=== PATIENT | female | born 1990 | race African-American/Black ===

== ENCOUNTER 2018-07-08 21:21 | Emergency (ER) | payer OTHER ==
[~2018-07-08] VITALS: Ht 157.5 cm; Wt 60.0 kg
[2018-07-08 22:05] VITALS: BP 148/89
== END 2018-07-09 02:30 | disposition left against medical advice (07) ==
LOC: ER 21:21
DX: F41.9 Anxiety disorder, unspecified (principal); Z53.21 Procedure and treatment not carried out due to patient leaving prior to being seen by health care provider

== ENCOUNTER 2018-08-25 13:07 | Emergency (ER) | payer OTHER | END 2018-08-25 13:58 | disposition left against medical advice (07) | LOC: ER 13:34 | DX: Z53.21 Procedure and treatment not carried out due to patient leaving prior to being seen by health care provider (principal) ==

== ENCOUNTER 2020-08-14 19:49 | Emergency (ER) | payer OTHER, MEDICAID ==
[~2020-08-14] VITALS: Ht 165.1 cm; Wt 59.0 kg
[2020-08-14] MEDS ORDERED: LORAZEPAM 2MG/ML CPJ IV STA (20:02)
[2020-08-14] MEDS ORDERED: SODIUM CHLORIDE 0.9% 1,000 ML IV ONE (20:15)
[2020-08-14 20:38] LABS: BASOPHILS % 0.8 % (0.0-2.0); EOSINOPHILS % 0.2 % (0.0-5.0); HEMATOCRIT. 38.2 % (36.0-48.0); HEMOGLOBIN. 12.6 g/dL (12.0-16.0); MEAN CORPUSCULAR HEMOGLOBIN 34.9 pg (28.0-32.0); MEAN PLATELET VOLUME 10.3 fl (7.4-10.4); MONOCYTES % 14.1 % (2.0-8.0); NEUTROPHILS % 33.9 % (40.0-76.0); PLATELET 64 x1000/uL (130-400); RED BLOOD CELL COUNT 3.61 mill/uL (4.2-5.4); RED CELL DISTRIBUTION WIDTH 21.2 % (11.6-14.6)
[2020-08-14 20:44] LABS: CHLORIDE 98 mEq/L (98-107)
[2020-08-14 20:48] LABS: ETHANOL BLOOD 159 mg/dL
[2020-08-14 22:30] VITALS: BP 113/86
[2020-08-15] MEDS ORDERED: POTASSIUM CHLORIDE 20MEQ TABLET SR PO ONE (01:15)
== END 2020-08-15 02:10 | disposition home or self-care (01) ==
LOC: ER 19:49
DX: F10.129 Alcohol abuse with intoxication, unspecified (principal); R45.1 Restlessness and agitation; Y90.6 Blood alcohol level of 120-199 mg/100 ml; Z78.1 Physical restraint status; E87.6 Hypokalemia; J45.909 Unspecified asthma, uncomplicated
CPT/HCPCS: 36415; 80053; 80307; 80320; 80329; 85025; 93005; 96361; 96374; 99284; J2060; J7030; Z7610; G0480

== ENCOUNTER 2020-09-06 12:40 | Emergency (ER) | payer OTHER ==
[~2020-09-06] VITALS: Ht 157.5 cm; Wt 60.0 kg
[2020-09-06 14:12] LABS: BASOPHILS % 0.7 % (0.0-2.0); EOSINOPHILS % 0.2 % (0.0-5.0); HEMATOCRIT. 28.6 % (36.0-48.0); HEMOGLOBIN. 9.8 g/dL (12.0-16.0); LYMPHOCYTES % 33.2 % (20.0-50.0); MEAN CORPUSCULAR HEMOGLOBIN 38.6 pg (28.0-32.0); MEAN CORPUSCULAR VOLUME 113.2 fL (81.0-99.0); MEAN PLATELET VOLUME 8.2 fl (7.4-10.4); MONOCYTES % 10.3 % (2.0-8.0); NEUTROPHILS % 55.6 % (40.0-76.0); PLATELET 175 x1000/uL (130-400); RED BLOOD CELL COUNT 2.53 mill/uL (4.2-5.4); RED CELL DISTRIBUTION WIDTH 17.2 % (11.6-14.6)
[2020-09-06 14:19] LABS: CHLORIDE 96 mEq/L (98-107)
[2020-09-06 14:29] LABS: PLATELET ESTIMATE NORMAL
[2020-09-06] MEDS ORDERED: ONDANSETRON HCL 4MG/2ML INJ IV STA (14:40)
[2020-09-06] MEDS ORDERED: SODIUM CHLORIDE 0.9% 1,000 ML IV ONE (14:45)
[2020-09-06 15:23] LABS: CLARITY URINE CLOUDY (CLEAR); COLOR URINE DARK YELLOW (YELLOW); KETONES URINE NEGATIVE (NEGATIVE); LEUKOCYTE ESTERASE URINE TRACE (NEGATIVE); NITRITE URINE NEGATIVE (NEGATIVE); OCCULT BLOOD URINE NEGATIVE (NEGATIVE); PH URINE 6.5 (4.5-8.0); PROTEIN URINE 1+ (NEGATIVE); SPECIFIC GRAVITY URINE 1.012 (1.005-1.030)
[2020-09-06 15:43] LABS: INR 1.2; PARTIAL THROMBOPLASTIN TIME 27.5 sec (23.4-31.0); PROTHROMBIN TIME 13.1 sec (9.6-11.0)
[2020-09-06] MEDS ORDERED: POTASSIUM CHLORIDE 20MEQ TABLET SR PO ONE (15:45)
[2020-09-06 16:03] LABS: HCG SCREEN NEGATIVE
[2020-09-06 16:30] LABS: HEPATITIS B SURFACE ANTIGEN NEGATIVE
[2020-09-06 16:59] LABS: HEPATITIS A AB IGM NEGATIVE (NEGATIVE)
[2020-09-06] MEDS ORDERED: IBUPROFEN 400MG TABLET PO ONE (19:00)
[2020-09-06 20:30] VITALS: BP 103/62
== END 2020-09-06 21:25 | disposition short-term general hospital (02) ==
LOC: ER 12:40 → CANBEDREQ 09-07 01:24
DX: K70.40 Alcoholic hepatic failure without coma (principal); F10.20 Alcohol dependence, uncomplicated; Y90.9 Presence of alcohol in blood, level not specified; E87.6 Hypokalemia; K82.8 Other specified diseases of gallbladder
CPT/HCPCS: 36415; 71045; 76700; 80053; 81003; 81025; 83690; 84703; 85025; 85610; 85730; 86705; 86709; 86803; 87340; 93005; 96361; 96374; 99285; J2405; J7030; Z7610

== ENCOUNTER 2021-03-13 22:31 | Emergency (ER) | payer MEDICAID, OTHER ==
[~2021-03-13] VITALS: Ht 162.6 cm; Wt 52.0 kg
[2021-03-14] MEDS ORDERED: PANTOPRAZOLE SODIUM 40 MG/VIAL IV STA (00:25)
[2021-03-14] MEDS ORDERED: ONDANSETRON HCL 4MG/2ML INJ IV STA (00:25)
[2021-03-14] MEDS ORDERED: SODIUM CHLORIDE 0.9% 1,000 ML IV ONE (00:30)
[2021-03-14 01:21] LABS: BASOPHILS % 0.6 % (0.0-2.0); HEMATOCRIT. 39.7 % (36.0-48.0); HEMOGLOBIN. 13.5 g/dL (12.0-16.0); LYMPHOCYTES % 20.8 % (20.0-50.0); MEAN CORPUSCULAR HEMOGLOBIN 34.3 pg (28.0-32.0); MEAN CORPUSCULAR VOLUME 100.6 fL (81.0-99.0); MONOCYTES % 6.9 % (2.0-8.0); NEUTROPHILS % 71.7 % (40.0-76.0); PLATELET 108 x1000/uL (130-400); RED BLOOD CELL COUNT 3.95 mill/uL (4.2-5.4); RED CELL DISTRIBUTION WIDTH 12.3 % (11.6-14.6)
[2021-03-14] MEDS ORDERED: HALOPERIDOL LACTATE 5MG/ML VIAL IM STA (01:32)
[2021-03-14] MEDS ORDERED: DIPHENHYDRAMINE 50MG/ML VIAL IM STA (01:32)
[2021-03-14] MEDS ORDERED: LORAZEPAM 2MG/ML CPJ IM STA (01:32)
[2021-03-14 01:33] LABS: CLARITY URINE CLEAR (CLEAR); COLOR URINE YELLOW (YELLOW); KETONES URINE 4+ (NEGATIVE); LEUKOCYTE ESTERASE URINE NEGATIVE (NEGATIVE); NITRITE URINE NEGATIVE (NEGATIVE); OCCULT BLOOD URINE NEGATIVE (NEGATIVE); PH URINE 5.5 (4.5-8.0); PROTEIN URINE 1+ (NEGATIVE); SPECIFIC GRAVITY URINE 1.021 (1.005-1.030); UROBILINOGEN URINE 0.2 E.U./dL (0.2-1.0)
[2021-03-14 01:33] LABS: CHLORIDE 99 mEq/L (98-107)
[2021-03-14 01:37] LABS: ETHANOL BLOOD 64 mg/dL; INR 1.1
[2021-03-14 01:38] LABS: HCG SCREEN NEGATIVE
[2021-03-14] MEDS ORDERED: POTASSIUM CHLORIDE INJ 40 MEQ in DEXT 5% WATER 250 ML IV SCH (04:00)
[2021-03-14 05:11] LABS: *BENZODIAZEPINES SCREEN URINE NEGATIVE (NEGATIVE); *COCAINE SCREEN URINE NEGATIVE (NEGATIVE)
[2021-03-14 05:12] LABS: *BARBITURATES SCREEN URINE NEGATIVE (NEGATIVE); CANNABINOID URINE SCREEN NEGATIVE (NEGATIVE); METHADONE URINE SCREEN NEGATIVE (NEGATIVE); OPIATES URINE SCREEN NEGATIVE (NEGATIVE); PHENCYCLIDINE URINE SCREEN NEGATIVE (NEGATIVE)
[2021-03-14 05:13] LABS: *AMPHETAMINES SCREEN URINE PRESUMTIVE POSITIVE (NEGATIVE)
[2021-03-14 10:06] VITALS: BP 129/80
== END 2021-03-14 10:39 | disposition home or self-care (01) ==
LOC: ER 22:31
DX: R10.9 Unspecified abdominal pain (principal); R45.1 Restlessness and agitation; F41.9 Anxiety disorder, unspecified; J45.909 Unspecified asthma, uncomplicated; F32.9 Major depressive disorder, single episode, unspecified
CPT/HCPCS: 36415; 76705; 80053; 80305; 80320; 81003; 82140; 83690; 84703; 85025; 85610; 96365; 96372; 96375; 99285; C9113; J1200; J1630; J2060; J2405; J3480; J7030; J7060; G0480

== ENCOUNTER 2021-08-21 11:02 | Emergency (ER) | payer OTHER ==
[~2021-08-21] VITALS: Ht 167.6 cm; Wt 53.0 kg
[~2021-08-21 11:02] MED LIST: ALBU90AE INH; DIVA500T51 PO; ESCI10TA PO; FAMO20TA8 PO; GABA-532 PO; MULT-1146 PO; ONDA4TAB5 MT; PANT40TA51 PO; PROT40 MT
[2021-08-21] MEDS ORDERED: ONDANSETRON HCL 4MG/2ML INJ IV STA (11:52)
[2021-08-21] MEDS ORDERED: [UNRECOGNIZED DRUG - REMARK] IV ONE ×4 (12:00)
[2021-08-21] MEDS ORDERED: SODIUM CHLORIDE 0.9% 1,000 ML IV ONE (12:00)
[2021-08-21 12:31] LABS: CLARITY URINE CLEAR (CLEAR); COLOR URINE DARK YELLOW (YELLOW); KETONES URINE 3+ (NEGATIVE); LEUKOCYTE ESTERASE URINE 1+ (NEGATIVE); NITRITE URINE NEGATIVE (NEGATIVE); OCCULT BLOOD URINE NEGATIVE (NEGATIVE); PH URINE >=9.0 (4.5-8.0); PROTEIN URINE 1+ (NEGATIVE)
[2021-08-21 13:00] LABS: *AMPHETAMINES SCREEN URINE NEGATIVE (NEGATIVE); *BARBITURATES SCREEN URINE NEGATIVE (NEGATIVE); *COCAINE SCREEN URINE NEGATIVE (NEGATIVE); METHADONE URINE SCREEN NEGATIVE (NEGATIVE)
[2021-08-21 13:01] LABS: CANNABINOID URINE SCREEN NEGATIVE (NEGATIVE); OPIATES URINE SCREEN NEGATIVE (NEGATIVE); PHENCYCLIDINE URINE SCREEN NEGATIVE (NEGATIVE)
[2021-08-21 13:12] LABS: *BENZODIAZEPINES SCREEN URINE PRESUMTIVE POSITIVE (NEGATIVE)
[2021-08-21 13:19] LABS: HEMATOCRIT. 43.2 % (36.0-48.0); HEMOGLOBIN. 15.1 g/dL (12.0-16.0); MEAN CORPUSCULAR HEMOGLOBIN 32.5 pg (28.0-32.0); MEAN CORPUSCULAR VOLUME 93.2 fL (81.0-99.0); MEAN PLATELET VOLUME 8.6 fl (7.4-10.4); PLATELET 338 x1000/uL (130-400); RED BLOOD CELL COUNT 4.64 mill/uL (4.2-5.4)
[2021-08-21 13:26] LABS: CHLORIDE 95 mEq/L (98-107)
[2021-08-21 13:27] LABS: HCG SCREEN NEGATIVE
[2021-08-21 13:30] LABS: ETHANOL BLOOD < 10 mg/dL
[2021-08-21 13:41] LABS: PLATELET ESTIMATE NORMAL
[2021-08-21] MEDS ORDERED: ONDA4TAB5 MT (14:42)
[2021-08-21] MEDS ORDERED: ONDANSETRON HCL 4MG/2ML INJ IV ONE (14:45)
[2021-08-21 16:12] VITALS: BP 115/71
== END 2021-08-21 16:34 | disposition home or self-care (01) ==
LOC: ER 11:02
DX: F10.239 Alcohol dependence with withdrawal, unspecified (principal); F10.229 Alcohol dependence with intoxication, unspecified; J45.909 Unspecified asthma, uncomplicated; Z79.899 Other long term (current) drug therapy; Y90.0 Blood alcohol level of less than 20 mg/100 ml
CPT/HCPCS: 36415; 80053; 80305; 80320; 81003; 84703; 85025; 96361; 96365; 96375; 96376; 99284; J2405; J3411; J3490; J7030; J7070; G0480

== ENCOUNTER 2021-08-25 13:03 | Emergency (ER) | payer OTHER ==
[~2021-08-25] VITALS: Ht 157.5 cm; Wt 52.0 kg
[2021-08-25 13:08] VITALS: BP 132/98
== END 2021-08-25 18:26 | disposition left against medical advice (07) ==
LOC: ER 13:19
DX: Z53.21 Procedure and treatment not carried out due to patient leaving prior to being seen by health care provider (principal)
CPT/HCPCS: 93005

== ENCOUNTER 2021-09-18 15:52 | Emergency (ER) | payer OTHER ==
[~2021-09-18] VITALS: Ht 170.2 cm; Wt 60.0 kg
[2021-09-18] MEDS ORDERED: FOLIC ACID 1 MG, THIAMINE HCL 100 MG, MVI, ADULT NO.1 10 ML in DEXTROSE 5% WATER 1,000 ML IV ONE ×4 (16:30)
[2021-09-18] MEDS ORDERED: LORAZEPAM 2MG/ML CPJ IV ONE (16:30)
[2021-09-18] MEDS ORDERED: ONDANSETRON HCL 4MG/2ML INJ IV ONE (16:30)
[2021-09-18 16:37] LABS: HEMATOCRIT. 44.7 % (36.0-48.0); HEMOGLOBIN. 15.7 g/dL (12.0-16.0); MEAN CORPUSCULAR HEMOGLOBIN 31.8 pg (28.0-32.0); MEAN CORPUSCULAR VOLUME 90.5 fL (81.0-99.0); MEAN PLATELET VOLUME 8.5 fl (7.4-10.4); PLATELET 233 x1000/uL (130-400); RED BLOOD CELL COUNT 4.94 mill/uL (4.2-5.4); RED CELL DISTRIBUTION WIDTH 14.6 % (11.6-14.6)
[2021-09-18 16:44] LABS: CHLORIDE 85 mEq/L (98-107)
[2021-09-18 16:46] LABS: HCG SCREEN NEGATIVE
[2021-09-18 16:47] LABS: ETHANOL BLOOD < 10 mg/dL
[2021-09-18 16:54] LABS: PLATELET ESTIMATE NORMAL
[2021-09-18] MEDS ORDERED: ONDA4TAB11 PO (19:31)
[2021-09-18] MEDS ORDERED: LORA-250 MT (19:31)
[2021-09-18] MEDS ORDERED: OMEP20CA14 MT (19:31)
[2021-09-18 20:05] VITALS: BP 118/90
== END 2021-09-18 20:03 | disposition home or self-care (01) ==
LOC: ER 15:52
DX: F10.229 Alcohol dependence with intoxication, unspecified (principal); R11.2 Nausea with vomiting, unspecified; Y90.0 Blood alcohol level of less than 20 mg/100 ml; R07.89 Other chest pain; E87.8 Other disorders of electrolyte and fluid balance, not elsewhere classified
CPT/HCPCS: 36415; 71045; 80048; 80307; 80320; 80329; 83690; 83735; 84484; 84703; 85025; 93005; 96365; 96375; 99285; J2060; J2405; J3411; J3490; J7070; G0480

== ENCOUNTER 2021-09-21 17:11 | Emergency (ER) | payer OTHER ==
[~2021-09-21] VITALS: Ht 157.5 cm; Wt 57.0 kg
[~2021-09-21 17:11] MED LIST changes: +LORA-250 MT; +OMEP20CA14 MT; +ONDA4TAB11 PO
[2021-09-21 17:14] VITALS: BP 121/77
[2021-09-21] MEDS ORDERED: SODIUM CHLORIDE 0.9% 1,000 ML IV ONE (19:00)
[2021-09-21] MEDS ORDERED: MAGNESIUM/ALUMINUM HYDROXIDE/SIMETHICONE 30ML UDC PO STA (19:00)
[2021-09-21] MEDS ORDERED: METOCLOPRAMIDE HCL 10MG/2ML VIAL IV STA (19:00)
== END 2021-09-21 22:04 | disposition left against medical advice (07) ==
LOC: ER 17:11
DX: R10.13 Epigastric pain (principal); R11.2 Nausea with vomiting, unspecified; R07.89 Other chest pain; R06.02 Shortness of breath
CPT/HCPCS: 93005; 99283; J7030

== ENCOUNTER 2022-05-22 15:29 | Emergency (ER) | payer OTHER ==
[~2022-05-22] VITALS: Ht 157.5 cm; Wt 54.0 kg
[2022-05-22 15:39] VITALS: BP 121/79
== END 2022-05-22 23:57 | disposition left against medical advice (07) ==
LOC: ER 15:29
DX: Z53.21 Procedure and treatment not carried out due to patient leaving prior to being seen by health care provider (principal)

== ENCOUNTER 2023-04-26 23:25 | Emergency (ER) | payer OTHER ==
[~2023-04-26] VITALS: Ht 160 cm; Wt 40.4 kg
[~2023-04-26 23:25] MED LIST changes: +ABIL5 PO; +CHLO25CA10 MT; +FOLI-43 PO; +HYDR-4001 MT; +LORA-249 MT; +MULT-230 MT; +PANT40TA51 MT; +THIA100T72 PO
[2023-04-26 23:31] VITALS: BP 135/92; PULSE 149; RESP 22; TEMP 98.5; O2SAT 98
[2023-04-27] MEDS ORDERED: SODIUM CHLORIDE 0.9% 1,000 ML IV ONE
[2023-04-27] MEDS ORDERED: LORAZEPAM 2MG/ML CPJ IV ONE (00:15)
[2023-04-27 00:22] LABS: EOSINOPHILS % 0.5 % (0.0-5.0); HEMATOCRIT. 45.5 % (36.0-48.0); HEMOGLOBIN. 15.3 g/dL (12.0-16.0); LYMPHOCYTES % 57.6 % (20.0-50.0); MEAN CORPUSCULAR HEMOGLOBIN 30.6 pg (28.0-32.0); MEAN CORPUSCULAR HGB CONC 33.5 g/dL (31.0-37.0); MEAN CORPUSCULAR VOLUME 91.3 fL (81.0-99.0); MEAN PLATELET VOLUME 8.4 fl (7.4-10.4); MONOCYTES % 13.6 % (2.0-8.0); NEUTROPHILS % 27.3 % (40.0-76.0); PLATELET 348 x1000/uL (130-400); RED BLOOD CELL COUNT 4.99 mill/uL (4.2-5.4); WHITE BLOOD COUNT 10.1 x1000/uL (4.5-11.0)
[2023-04-27 00:31] LABS: CHLORIDE 82 mEq/L (98-107); INDEX HEMOLYSI 1 (1-3); INDEX ICTERIC 1 (1-4); INDEX LIPEMIC 1 (1-3); SODIUM 131 mEq/L (136-145)
[2023-04-27 00:35] LABS: AMMONIA 20 uMol/L (<32)
[2023-04-27 00:40] LABS: ACETAMINOPHEN <2 ug/mL ug/mL (10-30); ALANINE AMINOTRANSFERASE 23 IU/L (13-61); ALBUMIN 4.6 g/dL (3.4-5.0); ASPARTATE AMINOTRANSFERASE 33 IU/L (15-37); BILIRUBIN TOTAL 0.3 mg/dL (0.1-1.0); CALCIUM 9.4 mg/dL (8.5-10.1); CARBON DIOXIDE 36 mEq/L (21-32); ETHANOL BLOOD 95 mg/dL (<10); GLUCOSE 97 mg/dL (70-105); PROTEIN TOTAL 10.6 g/dL (6.0-8.3); UREA NITROGEN BLOOD 16 mg/dL (7-21)
[2023-04-27 00:41] LABS: HCG SCREEN NEGATIVE
[2023-04-27 00:50] LABS: POTASSIUM 2.4 mEq/L (3.5-5.1)
[2023-04-27 04:58] LABS: TROPONIN I HIGH SENSITIVITY 10 ng/L (<54)
[2023-04-28] MEDS ORDERED: NITR-87 MT (08:00)
== END 2023-04-27 00:38 | disposition left against medical advice (07) ==
LOC: ER 23:25
DX: R44.0 Auditory hallucinations (principal); R00.0 Tachycardia, unspecified; E87.6 Hypokalemia; J45.909 Unspecified asthma, uncomplicated; Z79.899 Other long term (current) drug therapy; Z90.49 Acquired absence of other specified parts of digestive tract
CPT/HCPCS: 80053; 80307; 80329; 80320; 82140; 84703; 83690; 85025; 85379; 84484; 36415; 99284; 93005; J7030; G0480

== ENCOUNTER 2023-04-28 04:32 | Emergency (ER) | payer MEDICAID, OTHER ==
[~2023-04-28] VITALS: Ht 160 cm; Wt 39.7 kg
[2023-04-28 05:06] VITALS: BP 126/87; PULSE 125; RESP 18; TEMP 98.5; O2SAT 97
[2023-04-28] MEDS ORDERED: MAGNESIUM/ALUMINUM HYDROXIDE/SIMETHICONE 30ML UDC PO STA (05:28)
[2023-04-28] MEDS ORDERED: ONDANSETRON 4MG ODT PO STA (05:28)
[2023-04-28] MEDS ORDERED: SODIUM CHLORIDE 0.9% 1,000 ML IV ONE (05:30)
[2023-04-28 06:00] LABS: CLARITY URINE TURBID (CLEAR); COLOR URINE RED (YELLOW); GLUCOSE URINE NEGATIVE (NEGATIVE); KETONES URINE NEGATIVE (NEGATIVE); LEUKOCYTE ESTERASE URINE 2+ (NEGATIVE); NITRITE URINE POSITIVE (NEGATIVE); OCCULT BLOOD URINE 3+ (NEGATIVE); PROTEIN URINE 2+ (NEGATIVE); SPECIFIC GRAVITY URINE 1.026 (1.005-1.030); UROBILINOGEN URINE 0.2 E.U./dL (0.2-1.0)
[2023-04-28] MEDS ORDERED: CHLORDIAZEPOXIDE 25MG CAPSULE PO SCH (06:00)
[2023-04-28 06:05] LABS: EOSINOPHILS % 0.4 % (0.0-5.0); HEMATOCRIT. 40.6 % (36.0-48.0); HEMOGLOBIN. 13.8 g/dL (12.0-16.0); LYMPHOCYTES % 40.3 % (20.0-50.0); MEAN CORPUSCULAR HEMOGLOBIN 30.8 pg (28.0-32.0); MEAN CORPUSCULAR HGB CONC 34.1 g/dL (31.0-37.0); MEAN CORPUSCULAR VOLUME 90.5 fL (81.0-99.0); MEAN PLATELET VOLUME 8.4 fl (7.4-10.4); MONOCYTES % 14.1 % (2.0-8.0); NEUTROPHILS % 44.2 % (40.0-76.0); PLATELET 333 x1000/uL (130-400); RED BLOOD CELL COUNT 4.48 mill/uL (4.2-5.4); RED CELL DISTRIBUTION WIDTH 16.9 % (11.6-14.6); WHITE BLOOD COUNT 8.9 x1000/uL (4.5-11.0)
[2023-04-28] MEDS ORDERED: NITROFURANTOIN 100MG M/M CAPSULE PO ONE (06:15)
[2023-04-28 06:29] LABS: CHLORIDE 80 mEq/L (98-107); INDEX HEMOLYSI 1 (1-3); INDEX ICTERIC 1 (1-4); INDEX LIPEMIC 1 (1-3); SODIUM 130 mEq/L (136-145)
[2023-04-28 06:36] LABS: ALANINE AMINOTRANSFERASE 22 IU/L (13-61); ALBUMIN 4.6 g/dL (3.4-5.0); ASPARTATE AMINOTRANSFERASE 28 IU/L (15-37); BILIRUBIN TOTAL 0.3 mg/dL (0.1-1.0); CALCIUM 10.1 mg/dL (8.5-10.1); CARBON DIOXIDE 36 mEq/L (21-32); CREATININE 1.2 mg/dL (0.6-1.3); ETHANOL BLOOD 127 mg/dL (<10); GLUCOSE 119 mg/dL (70-105); PROTEIN TOTAL 10.2 g/dL (6.0-8.3); UREA NITROGEN BLOOD 20 mg/dL (7-21)
[2023-04-28 06:41] LABS: POTASSIUM 2.5 mEq/L (3.5-5.1)
[2023-04-28 07:00] LABS: HCG SCREEN NEGATIVE
[2023-04-28] MEDS ORDERED: POTASSIUM CHLORIDE 20MEQ TABLET SR PO ONE ×2 (07:00)
[2023-04-28] MEDS ORDERED: DIAZEPAM 5 MG/ML 2ML CPJ IM ONE (07:15)
[2023-04-28 07:52] LABS: WBC URINE 0-2 /hpf (0-2)
[2023-04-28 07:53] LABS: BACTERIA URINE NONE SEEN; RBC URINE TNTC /hpf (0-2); SQUAMOUS EPITHELIAL CELL URINE 1+ /lpf (RARE/1+)
[2023-04-28] MEDS ORDERED: NITR-87 MT (08:00)
== END 2023-04-28 07:15 | disposition left against medical advice (07) ==
LOC: ER 04:32
DX: F10.129 Alcohol abuse with intoxication, unspecified (principal); E87.8 Other disorders of electrolyte and fluid balance, not elsewhere classified; E87.6 Hypokalemia; Z79.899 Other long term (current) drug therapy; Y90.6 Blood alcohol level of 120-199 mg/100 ml
CPT/HCPCS: 80053; 81003; 81025; 80320; 84703; 83690; 85025; 36415; 71045; 93005; 96360; 99285; Q0162; J7030; Z7610 ×2; G0480

== ENCOUNTER 2023-05-01 07:59 | Emergency (ER) | payer OTHER ==
[~2023-05-01] VITALS: Ht 160 cm; Wt 54.4 kg
[~2023-05-01 07:59] MED LIST changes: +NITR-87 MT
[2023-05-01 08:05] VITALS: BP 135/83; PULSE 117; RESP 16; TEMP 98.5; O2SAT 98
== END 2023-05-01 09:01 | disposition left against medical advice (07) ==
LOC: ER 07:59
DX: R44.0 Auditory hallucinations (principal); Z79.899 Other long term (current) drug therapy
CPT/HCPCS: 99281

== ENCOUNTER 2023-05-24 05:27 | Emergency (ER) | payer OTHER ==
[~2023-05-24] VITALS: Ht 162.6 cm; Wt 60.0 kg
[2023-05-24 05:30] VITALS: O2SAT 98
[2023-05-24] MEDS ORDERED: OLANZAPINE 10 MG/VIAL IM STA (05:34)
[2023-05-24] MEDS ORDERED: LORAZEPAM 2MG/ML CPJ IM ONE (05:45)
[2023-05-24] MEDS ORDERED: TETANUS, DIPHTHERIA, PERTUSSIS VAC/PF 0.5ML (>10YR OLD) IM ONE (05:45)
[2023-05-24] MEDS ORDERED: BACITRACIN ZINC OINT UDPKT TOP ONE (05:45)
[2023-05-24] MEDS ORDERED: HALOPERIDOL LACTATE 5MG/ML VIAL IM ONE (05:45)
[2023-05-24] MEDS ORDERED: LORAZEPAM 4MG/ML VIAL IM NR (06:00)
[2023-05-24 06:25] LABS: BASOPHILS % 0.8 % (0.0-2.0); EOSINOPHILS % 0.3 % (0.0-5.0); HEMATOCRIT. 35.1 % (36.0-48.0); HEMOGLOBIN. 11.5 g/dL (12.0-16.0); MEAN CORPUSCULAR HEMOGLOBIN 30.9 pg (28.0-32.0); MEAN CORPUSCULAR HGB CONC 32.9 g/dL (31.0-37.0); MEAN CORPUSCULAR VOLUME 93.9 fL (81.0-99.0); MEAN PLATELET VOLUME 7.4 fl (7.4-10.4); MONOCYTES % 7.2 % (2.0-8.0); NEUTROPHILS % 26.7 % (40.0-76.0); PLATELET 228 x1000/uL (130-400); RED BLOOD CELL COUNT 3.74 mill/uL (4.2-5.4); RED CELL DISTRIBUTION WIDTH 15.9 % (11.6-14.6); WHITE BLOOD COUNT 8.9 x1000/uL (4.5-11.0)
[2023-05-24 06:36] LABS: HCG SCREEN NEGATIVE
[2023-05-24 06:55] LABS: ACETAMINOPHEN < 2 ug/mL (10-30); ALANINE AMINOTRANSFERASE 41 IU/L (10-49); ALBUMIN 3.9 g/dL (3.2-4.8); ASPARTATE AMINOTRANSFERASE 94 IU/L (<34); BILIRUBIN TOTAL 0.9 mg/dL (0.1-1.0); CALCIUM 8.7 mg/dL (8.7-10.4); CARBON DIOXIDE 25 mEq/L (21-32); CHLORIDE 108 mEq/L (98-107); CREATININE 0.7 mg/dL (0.6-1.0); ETHANOL BLOOD 327 mg/dL (<10); GLUCOSE 58 mg/dL (70-105); PROTEIN TOTAL 7.8 g/dL (6.0-8.3); SODIUM 148 mEq/L (136-145); UREA NITROGEN BLOOD 8 mg/dL (9-23)
[2023-05-24 07:07] LABS: POTASSIUM 2.8 mEq/L (3.5-5.1)
[2023-05-24] MEDS ORDERED: POTASSIUM CHLORIDE 20MEQ/PACKET PO ONE (07:15)
[2023-05-24 14:58] LABS: CALCIUM 8.1 mg/dL (8.7-10.4); CARBON DIOXIDE 22 mEq/L (21-32); CHLORIDE 110 mEq/L (98-107); CREATININE 0.6 mg/dL (0.6-1.0); GLUCOSE 53 mg/dL (70-105); POTASSIUM 2.9 mEq/L (3.5-5.1); SODIUM 147 mEq/L (136-145); UREA NITROGEN BLOOD 9 mg/dL (9-23)
[2023-05-24 17:21] VITALS: BP 130/76; PULSE 80; RESP 16; TEMP 98.2
== END 2023-05-24 19:39 | disposition home or self-care (01) ==
LOC: ER 05:37
DX: S51.812A Laceration without foreign body of left forearm, initial encounter (principal); J45.909 Unspecified asthma, uncomplicated; F32.9 Major depressive disorder, single episode, unspecified; F12.10 Cannabis abuse, uncomplicated; E87.6 Hypokalemia; F10.129 Alcohol abuse with intoxication, unspecified; F15.10 Other stimulant abuse, uncomplicated; Z79.899 Other long term (current) drug therapy; Z20.822 Contact with and (suspected) exposure to COVID-19; Y08.89XA Assault by other specified means, initial encounter; Y93.89 Activity, other specified; Y92.89 Other specified places as the place of occurrence of the external cause; Y99.8 Other external cause status; Y90.8 Blood alcohol level of 240 mg/100 ml or more
CPT/HCPCS: 80053; 80048; 80307; 80329; 80320; 84703; 83735; 84443; 85025; 36415; 73120; 90715; 93005; 90471; 96372; 99291; 87426; J1630; C9803; Z7610; G0480

== ENCOUNTER 2023-07-13 08:07 | Emergency (ER) | payer MEDICAID, OTHER ==
[~2023-07-13] VITALS: Ht 162.6 cm; Wt 46.0 kg
[2023-07-13] MEDS ORDERED: LORAZEPAM 2MG/ML INJ IM ONE (08:15)
[2023-07-13] MEDS ORDERED: OLANZAPINE 10 MG/VIAL IM ONE (08:15)
[2023-07-13 09:49] LABS: BASOPHILS % 0.2 % (0.0-2.0); HEMATOCRIT. 34.2 % (36.0-48.0); LYMPHOCYTES % 13.2 % (20.0-50.0); MEAN CORPUSCULAR HEMOGLOBIN 30.1 pg (28.0-32.0); MEAN CORPUSCULAR HGB CONC 32.2 g/dL (31.0-37.0); MEAN CORPUSCULAR VOLUME 93.5 fL (81.0-99.0); MEAN PLATELET VOLUME 7.6 fl (7.4-10.4); MONOCYTES % 8.8 % (2.0-8.0); NEUTROPHILS % 77.8 % (40.0-76.0); PLATELET 192 x1000/uL (130-400); RED BLOOD CELL COUNT 3.66 mill/uL (4.2-5.4); RED CELL DISTRIBUTION WIDTH 13.6 % (11.6-14.6); WHITE BLOOD COUNT 11.3 x1000/uL (4.5-11.0)
[2023-07-13 10:10] LABS: ALANINE AMINOTRANSFERASE 29 IU/L (10-49); ALBUMIN 3.9 g/dL (3.2-4.8); ASPARTATE AMINOTRANSFERASE 65 IU/L (<34); BILIRUBIN TOTAL 0.6 mg/dL (0.1-1.0); CALCIUM 8.8 mg/dL (8.7-10.4); CARBON DIOXIDE 26 mEq/L (21-32); CHLORIDE 86 mEq/L (98-107); CREATININE 0.9 mg/dL (0.6-1.0); ETHANOL BLOOD 95 mg/dL (<10); GLUCOSE 82 mg/dL (70-105); HCG SCREEN NEGATIVE; PROTEIN TOTAL 8.4 g/dL (6.0-8.3); SODIUM 133 mEq/L (136-145); UREA NITROGEN BLOOD 11 mg/dL (9-23)
[2023-07-13 10:27] LABS: POTASSIUM 2.1 mEq/L (3.5-5.1)
[2023-07-13 11:00] VITALS: O2SAT 99
[2023-07-13 12:02] LABS: CLARITY URINE CLOUDY (CLEAR); COLOR URINE DARK YELLOW (YELLOW); GLUCOSE URINE NEGATIVE (NEGATIVE); KETONES URINE TRACE (NEGATIVE); LEUKOCYTE ESTERASE URINE TRACE (NEGATIVE); NITRITE URINE NEGATIVE (NEGATIVE); OCCULT BLOOD URINE NEGATIVE (NEGATIVE); PH URINE 6.5 (4.5-8.0); PROTEIN URINE 2+ (NEGATIVE); SPECIFIC GRAVITY URINE 1.025 (1.005-1.030)
[2023-07-13 12:40] LABS: RBC URINE 0-2 /hpf (0-2); WBC URINE 0-2 /hpf (0-2)
[2023-07-13 12:41] LABS: BACTERIA URINE TRACE; SQUAMOUS EPITHELIAL CELL URINE 2+ /lpf (RARE/1+); YEAST URINE NONE SEEN
[2023-07-13 12:47] LABS: *AMPHETAMINES SCREEN URINE NEGATIVE (NEGATIVE); *BARBITURATES SCREEN URINE NEGATIVE (NEGATIVE); *BENZODIAZEPINES SCREEN URINE NEGATIVE (NEGATIVE); *COCAINE SCREEN URINE NEGATIVE (NEGATIVE); CANNABINOID URINE SCREEN NEGATIVE (NEGATIVE); ECSTASY MDMA SCREEN URINE NEGATIVE (NEGATIVE); METHADONE URINE SCREEN Neg (NEGATIVE); OPIATES URINE SCREEN NEGATIVE (NEGATIVE); PHENCYCLIDINE URINE SCREEN NEGATIVE (NEGATIVE)
[2023-07-13] MEDS ORDERED: POTASSIUM CHLORIDE 20MEQ/PACKET PO ONE (13:45)
[2023-07-14] MEDS ORDERED: ARIPIPRAZOLE 5MG TABLET PO SCH (12:00)
[2023-07-14] MEDS ORDERED: POTASSIUM CHLORIDE 20MEQ TABLET SR PO ONE (14:00)
[2023-07-14 19:15] VITALS: BP 104/72; PULSE 102; RESP 18; TEMP 98.2
== END 2023-07-14 19:17 ==
LOC: ER 08:07
DX: R45.851 Suicidal ideations (principal); Z20.822 Contact with and (suspected) exposure to COVID-19
CPT/HCPCS: 80053; 80305; 81003; 80320; 84703; 85025; 36415; 96372; 99285; 87426; J3490; J2060; Z7610 ×2; G0480

== ENCOUNTER 2023-10-09 00:27 | Emergency (ER) | payer SELFPAY ==
[~2023-10-09] VITALS: Ht 170.2 cm; Wt 55.0 kg
[2023-10-09 00:30] VITALS: BP 124/74; PULSE 100; RESP 18; TEMP 98.4; O2SAT 98
== END 2023-10-09 02:03 | disposition left against medical advice (07) ==
LOC: ER 00:27
DX: R51.9 Headache, unspecified (principal); Z53.21 Procedure and treatment not carried out due to patient leaving prior to being seen by health care provider
CPT/HCPCS: 99281

== ENCOUNTER 2024-01-02 01:53 | Emergency (ER) | payer MEDICAID ==
[~2024-01-02] VITALS: Ht 167.6 cm; Wt 50.0 kg
[~2024-01-02 01:53] MED LIST changes: +ONDA-239 PO; -ONDA4TAB11 PO
[2024-01-02] MEDS: LORAZEPAM 2MG/ML INJ IM ONE (02:51)
[2024-01-02] MEDS: DIPHENHYDRAMINE 50MG/ML VIAL IM ONE (02:52)
[2024-01-02] MEDS: HALOPERIDOL LACTATE 5MG/ML VIAL IM ONE (02:52)
[2024-01-02 03:35] VITALS: O2SAT 99
[2024-01-02 04:34] LABS: BASOPHILS % 0.4 % (0.0-2.0); HEMATOCRIT. 33.3 % (36.0-48.0); LYMPHOCYTES % 24.5 % (20.0-50.0); MEAN CORPUSCULAR HEMOGLOBIN 31.1 pg (28.0-32.0); MEAN CORPUSCULAR VOLUME 94.1 fL (81.0-99.0); MEAN PLATELET VOLUME 8.9 fl (7.4-10.4); MONOCYTES % 5.3 % (2.0-8.0); NEUTROPHILS % 69.8 % (40.0-76.0); PLATELET 73 x1000/uL (130-400); RED BLOOD CELL COUNT 3.54 mill/uL (4.2-5.4); RED CELL DISTRIBUTION WIDTH 16.8 % (11.6-14.6); WHITE BLOOD COUNT 8.6 x1000/uL (4.5-11.0)
[2024-01-02 04:45] LABS: CHLORIDE 106 mEq/L (98-107); SODIUM 138 mEq/L (136-145)
[2024-01-02 04:46] LABS: CARBON DIOXIDE 20 mEq/L (21-32)
[2024-01-02 04:47] LABS: CALCIUM 7.9 mg/dL (8.7-10.4)
[2024-01-02 04:51] LABS: CREATININE 0.7 mg/dL (0.6-1.0)
[2024-01-02 04:52] LABS: ETHANOL BLOOD 289 mg/dL (<10); GLUCOSE 83 mg/dL (70-105); UREA NITROGEN BLOOD 11 mg/dL (9-23)
[2024-01-02 04:53] LABS: ACETAMINOPHEN < 2 ug/mL (10-30); HCG SCREEN NEGATIVE
[2024-01-02 04:56] LABS: POTASSIUM 2.5 mEq/L (3.5-5.1)
[2024-01-02] MEDS ORDERED: POTASSIUM CHLORIDE 20MEQ/PACKET PO ONE (05:30)
[2024-01-02] MEDS: POTASSIUM CHLORIDE 20MEQ/PACKET PO NR (08:00)
[2024-01-02 13:10] LABS: CLARITY URINE CLOUDY (CLEAR); COLOR URINE ORANGE (YELLOW); GLUCOSE URINE NEGATIVE (NEGATIVE); KETONES URINE NEGATIVE (NEGATIVE); LEUKOCYTE ESTERASE URINE 1+ (NEGATIVE); NITRITE URINE NEGATIVE (NEGATIVE); OCCULT BLOOD URINE 3+ (NEGATIVE); PROTEIN URINE 1+ (NEGATIVE); SPECIFIC GRAVITY URINE 1.019 (1.005-1.030)
[2024-01-02 13:23] LABS: BACTERIA URINE 1+; RBC URINE TNTC /hpf (0-2); SQUAMOUS EPITHELIAL CELL URINE 1+ /lpf (RARE/1+); WBC URINE 0-2 /hpf (0-2); YEAST URINE NONE SEEN
[2024-01-02 13:25] LABS: *AMPHETAMINES SCREEN URINE NEGATIVE (NEGATIVE); *BARBITURATES SCREEN URINE NEGATIVE (NEGATIVE); *BENZODIAZEPINES SCREEN URINE NEGATIVE (NEGATIVE); *COCAINE SCREEN URINE NEGATIVE (NEGATIVE); CANNABINOID URINE SCREEN NEGATIVE (NEGATIVE); ECSTASY MDMA SCREEN URINE CONF.TEST INDICATED (NEGATIVE); METHADONE URINE SCREEN NEGATIVE (NEGATIVE); OPIATES URINE SCREEN NEGATIVE (NEGATIVE); PHENCYCLIDINE URINE SCREEN NEGATIVE (NEGATIVE)
[2024-01-02] MEDS: LORAZEPAM 0.5MG TABLET PO ONE (14:15)
[2024-01-02 16:32] LABS: ALANINE AMINOTRANSFERASE 96 IU/L (10-49); ALBUMIN 3.3 g/dL (3.2-4.8); ASPARTATE AMINOTRANSFERASE 157 IU/L (<34); BILIRUBIN TOTAL 4.3 mg/dL (0.1-1.0); CALCIUM 8.2 mg/dL (8.7-10.4); CARBON DIOXIDE 22 mEq/L (21-32); CHLORIDE 107 mEq/L (98-107); CREATININE 0.6 mg/dL (0.6-1.0); GLUCOSE 69 mg/dL (70-105); PROTEIN TOTAL 7.5 g/dL (6.0-8.3); SODIUM 141 mEq/L (136-145); UREA NITROGEN BLOOD 9 mg/dL (9-23)
[2024-01-02 16:56] LABS: POTASSIUM 2.8 mEq/L (3.5-5.1)
[2024-01-02] MEDS: ARIPIPRAZOLE 5MG TABLET PO SCH (18:30)
[2024-01-02] MEDS: LORAZEPAM 1MG TABLET PO ONE ×2 (18:45→23:20)
[2024-01-02] MEDS: DIPHENHYDRAMINE 25MG CAPSULE PO ONE (18:45)
[2024-01-02] MEDS: ONDANSETRON HCL 4MG TABLET PO ONE (19:00)
[2024-01-03 13:41] LABS: CHLORIDE 104 mEq/L (98-107); POTASSIUM 2.9 mEq/L (3.5-5.1); SODIUM 138 mEq/L (136-145)
[2024-01-03 13:42] LABS: CALCIUM 8.2 mg/dL (8.7-10.4); CARBON DIOXIDE 23 mEq/L (21-32)
[2024-01-03 13:47] LABS: CREATININE 0.6 mg/dL (0.6-1.0); GLUCOSE 73 mg/dL (70-105)
[2024-01-03 13:48] LABS: UREA NITROGEN BLOOD 8 mg/dL (9-23)
[2024-01-03] MEDS: HALOPERIDOL LACTATE 5MG/ML VIAL IM ONE (19:59)
[2024-01-04] MEDS: LORAZEPAM 1MG TABLET PO ONE (14:33)
[2024-01-05] MEDS: OXYMETAZOLINE HCL NASAL SPRAY 15ML BOTHNSTRLS SCH (04:48)
[2024-01-05 10:29] VITALS: BP 116/81; PULSE 70; RESP 18; TEMP 36.78072; O2SAT 99
== END 2024-01-05 11:12 | disposition home or self-care (01) ==
LOC: ER 01:53
DX: R45.851 Suicidal ideations (principal); F41.9 Anxiety disorder, unspecified; J45.909 Unspecified asthma, uncomplicated; F12.90 Cannabis use, unspecified, uncomplicated; F15.90 Other stimulant use, unspecified, uncomplicated; Z20.822 Contact with and (suspected) exposure to COVID-19
CPT/HCPCS: 80053; 80305; 80048; 81003; 80307; 80329; 80320; 84703; 85025; 36415; 96372 ×2; 99291; 87426; Q0163; Q0162; J1200; J1630 ×2; J2060; G0480